=== PATIENT | female | born 2000 | race Caucasian/White ===

== ENCOUNTER → 2019-04-03 | Outpatient (CLI) | payer OTHER ==
--- NOTE | 2019-04-03 10:05 | RAD ---
EXAM DESCRIPTION: Knee,Left 1 or 2 Views CLINICAL HISTORY: 19 years, Female, PAIN IN LEFT KNEE COMPARISON: None TECHNIQUE: Two views left knee FINDINGS: Supine views of the knee demonstrate the medial joint compartment intact. There is slightly comminuted impaction fracture of the lateral tibial plateau particularly in its lateral component. Depression is estimated at four or 5 mm. A moderate effusion/hemarthrosis is suspected. The femur and patella and fibula appear intact. IMPRESSION: 1. Lateral tibial plateau fracture at the peripheral aspect with estimated compression of 4 to 5 mm and slight comminution. 2. Intact femur and fibula and patella. Electronically signed by: George Green MD 04/03/2019 10:04 AM [facility]
--- NOTE | 2019-04-03 10:07 | RAD ---
EXAM DESCRIPTION: Ankle,Left 3 Views CLINICAL HISTORY: 19 years, Female, PAIN IN LEFT ANKLE AND JOINTS OF LEFT FOOT COMPARISON: None. TECHNIQUE: AP/lateral/oblique of the ankle FINDINGS: Three views of the left ankle demonstrate circumferential soft tissue swelling mild with intact ankle mortise. There is a tiny celina of calcification at the tip of the medial malleolus suggesting a small avulsive fragment. No widening of the mortise is noted. Laterally I question whether there is very subtle nondisplaced irregularity at the tip of the lateral malleolus and fibula suggesting an additional nondisplaced tiny avulsive injury in essentially anatomic alignment. The talus and ankle mortise is maintained. Posterior malleolus is normal. IMPRESSION: 1. Tiny cortical evulsion from the tip of the medial malleolus and questionable nondisplaced avulsive injury at the tip of the lateral malleolus with preserved ankle mortise. Electronically signed by: George Green MD 04/03/2019 10:06 AM [facility]
--- NOTE | 2019-04-03 10:08 | RAD ---
EXAM DESCRIPTION: Tibia/Fibula,Left CLINICAL HISTORY: 19 years Female, PAIN IN LEFT LEG COMPARISON: None. FINDINGS: Two views left leg demonstrate lateral tibial plateau fracture with mild impaction and estimated at four or 5 mm. The tibial shaft is otherwise intact. No evidence of fibular shaft injury is seen. IMPRESSION: Lateral tibial plateau fracture with mild impaction, otherwise negative left leg. Electronically signed by: George Green MD 04/03/2019 10:07 AM [facility]
== END ==
LOC: RAD 08:37
PROVIDERS: ATTEND Orthopaedic Surgery
DX: S82.102A Unspecified fracture of upper end of left tibia, initial encounter for closed fracture (principal); M89.8X7 Other specified disorders of bone, ankle and foot

== ENCOUNTER → 2019-04-07 | Outpatient (CLI) | payer OTHER ==
--- NOTE | 2019-04-07 13:22 | CT ---
Study: CT of the Left Knee. Indication: FRACTURE OF TIBIAL PLATEAU Technique: Axial CT images were acquired through the left knee without intravenous contrast. Coronal and sagittal reformats performed. This exam was performed according to our departmental dose-optimization program, which includes automated exposure control, adjustment of the mA and/or kV according to patient size and/or use of iterative reconstruction technique. Comparison: Radiographs April 03, 2019. Findings: Acute impaction fracture lateral tibial plateau noted measuring 23 mm AP by 23 mm transverse. The degree of impaction measures 4 mm. Mild cortical undulation of the articular surface at this site. No fracture extension to the medial tibial plateau. No additional fractures identified. Moderate size knee effusion. Trace lateral patellar tilt and subluxation. TT-TG distance measures 20 mm. Impression: Acute impaction fracture lateral tibial plateau with a moderate size knee effusion. Electronically signed by: Austin Nam MD 04/07/2019 1:21 PM [facility]
== END ==
LOC: CT 11:23
PROVIDERS: ATTEND Orthopaedic Surgery
DX: S82.125A Nondisplaced fracture of lateral condyle of left tibia, initial encounter for closed fracture (principal)

== ENCOUNTER → 2019-04-27 | Outpatient (CLI) | payer OTHER ==
--- NOTE | 2019-04-27 12:16 | RAD ---
EXAM DESCRIPTION: Knee,Left 1 or 2 Views CLINICAL HISTORY: 19 years Female, CLOSED FX OF TIBIAL PLATEAU TECHNIQUE: 2 views of the left knee were performed. COMPARISON: Radiograph dated April 03, 2019. CT lower extremity dated March 2019. FINDINGS: The visualized bones appear well mineralized. Again noted is mildly comminuted and impacted fracture of the lateral tibial plateau which appears stable from prior exam with approximately 6 mm depression. No significant interval callus formation suggestive of healing. Moderate suprapatellar joint effusion is noted. The overlying soft tissues appear grossly unremarkable. IMPRESSION: 1. Stable appearing lateral tibial plateau mildly comminuted and depressed fracture with estimated compression of 6 mm which appears stable from prior exam. No interval callus formation noted suggestive of healing. (Type III Schatzker tibial plateau fracture). 2. Moderate suprapatellar joint effusion. Electronically signed by: Ramón Mahoney MD 04/27/2019 12:15 PM [facility]
== END ==
LOC: RAD 10:22
PROVIDERS: ATTEND Orthopaedic Surgery
DX: S82.125D Nondisplaced fracture of lateral condyle of left tibia, subsequent encounter for closed fracture with routine healing (principal)

== ENCOUNTER → 2019-05-28 | Outpatient (CLI) | payer OTHER ==
--- NOTE | 2019-05-28 11:02 | RAD ---
EXAM DESCRIPTION: Knee,Left 1 or 2 Views CLINICAL HISTORY: 19 years Female, CLOSED FRACTURE OF TIBIAL PLATEAU LEFT TECHNIQUE: 2 views of the left knee were performed. COMPARISON: Radiograph dated April [address] lower extremity dated March 2019. She images during the procedure FINDINGS: The visualized bones appear well mineralized. Stable appearing mildly comminuted and impacted fracture of the lateral tibial plateau with stable 6 mm depression. No significant interval callus formation noted. No new acute fracture or dislocation. Slight interval improvement of the previously noted moderate suprapatellar joint effusion. The overlying soft tissues appear grossly unremarkable. IMPRESSION: 1. Stable appearing mildly comminuted and depressed lateral tibial plateau fracture with estimated compression of 6 mm, appears stable from prior radiograph. No significant interval callus formation noted. 2. Slight interval improvement of the suprapatellar joint effusion. Electronically signed by: Ramón Mahoney MD 05/28/2019 11:00 AM [facility]
== END ==
LOC: RAD 09:54
PROVIDERS: ATTEND Orthopaedic Surgery
DX: S82.125D Nondisplaced fracture of lateral condyle of left tibia, subsequent encounter for closed fracture with routine healing (principal); M25.462 Effusion, left knee

== ENCOUNTER → 2019-06-26 | Outpatient (CLI) | payer SELFPAY ==
--- NOTE | 2019-06-26 11:13 | RAD ---
EXAM DESCRIPTION: Knee,Left 1 or 2 Views CLINICAL HISTORY: 19 years Female, CLOSED FRACTURE OF TIBIAL PLATEAU LEFT COMPARISON: May 28, 2019 Findings: Two views/radiographs Healing comminuted depressed lateral tibial plateau fracture. Unchanged alignment. No significant interval depression. No new fracture. No dislocation. Normal bone mineralization. No significant joint effusion. IMPRESSION: Healing lateral tibial plateau fracture. Electronically signed by: Wilbert Escobar MD 06/26/2019 11:12 AM [facility]
== END ==
LOC: RAD 08:58
PROVIDERS: ATTEND Orthopaedic Surgery
DX: S82.125D Nondisplaced fracture of lateral condyle of left tibia, subsequent encounter for closed fracture with routine healing (principal)